=== PATIENT | female | born 1990 | race Caucasian/White ===

== ENCOUNTER 2021-08-13 13:52 | Day surgery (SDC) | payer BC ==
[2021-08-13 14:42] VITALS: BMI 38.2
[2021-08-13 15:24] LABS: #Basophils 0.1 10x3/uL (0.0-0.2); #Eosinphils 0.2 10x3/uL (0.0-0.5); #Monocytes 0.7 10x3/uL (0.0-1.1); #Neutrophils 6.5 10x3/uL (1.5-8.4); %Basophils 0.6 % (0.0-2.0); %Eosinophils 1.7 % (0.0-6.0); %Lymphocytes 15.2 % (18.0-47.0); %Monocytes 8.1 % (0.0-10.0); %Neutrophils 73.8 % (40.0-75.0); Hemoglobin 11.5 g/dL (12.0-15.5); Mean Corpuscular HGB CONC 33.8 g/dL (32.0-36.0); Mean Corpuscular Hemoglobin 29.8 pg (27.0-33.0); Mean Corpuscular Volume 88.1 fl (81.6-98.3); Mean Platelet Volume 10.5 fl (7.4-10.4); Platelet Count 227 10x3/uL (150-450); RBC Distribution Width 13.2 % (11.5-14.5); Red Blood Cell (RBC) Count 3.86 10x6/uL (3.90-5.03); White Blood Cell (WBC) Count 8.8 10x3/uL (3.5-10.5)
[2021-08-13 15:39] LABS: ALT (SGPT) 18 U/L (8-55); AST (SGOT) 17 U/L (5-34); Albumin 3.5 g/dL (3.5-5.0); Alkaline Phosphatase 107 U/L (40-110); Anion Gap 12 mmol/L (10-20); BUN (Urea Nitrogen) 12 mg/dL (7.0-18.7); Bilirubin, Total 0.2 mg/dL (0.2-1.2); Calc. Creatinine Clearance 163 mL/min (70-130); Calcium 8.9 mg/dL (7.8-10.44); Carbon Dioxide 20 mmol/L (22-29); Chloride 107 mmol/L (98-107); Globulin 3.3 g/dL (2.4-3.5); Glucose 87 mg/dL (70-105); Protein, Total 6.8 g/dL (6.0-8.3); Sodium 135 mmol/L (136-145)
[2021-08-13 16:00] LABS: Creatinine, Urine 34.18 mg/dL (47-110); Protein, Urine Random Quant Less than 10 mg/dL (1-14)
== END 2021-08-13 17:38 | disposition home or self-care (01) ==
LOC: CSHLD/OP 13:52
PROVIDERS: ATTEND Advanced Practice Midwife
DX: O99.891 Other specified diseases and conditions complicating pregnancy (principal); R03.0 Elevated blood-pressure reading, without diagnosis of hypertension; O24.419 Gestational diabetes mellitus in pregnancy, unspecified control; Z3A.36 36 weeks gestation of pregnancy; Z79.82 Long term (current) use of aspirin; Z88.0 Allergy status to penicillin; Z88.2 Allergy status to sulfonamides
CPT/HCPCS: 36415; 80053; 82570; 84156; 85025; 99283

== ENCOUNTER 2021-08-21 11:57 | Outpatient (CLI) | payer BC ==
[2021-08-21 20:38] LABS: SARS-CoV-2 PCR by NAA Not Detected (NotDetected)
== END 2021-08-21 11:58 | disposition home or self-care (01) ==
LOC: CSHLAB 11:57
PROVIDERS: ATTEND Advanced Practice Midwife
DX: Z20.822 Contact with and (suspected) exposure to COVID-19 (principal)
CPT/HCPCS: U0003; U0005

== ENCOUNTER 2021-08-23 05:30 | Inpatient (IN) | payer BC ==
[2021-08-23 07:41] VITALS: BMI 37.8
[2021-08-23] MEDS ORDERED: Bupivacaine 0.25% HCL 30 ML VIAL ONE (08:00)
[2021-08-23] MEDS ORDERED: Ondansetron PF 4 MG/2 ML Vial IVP PRN ×3 (08:24→18:51)
[2021-08-23] MEDS ORDERED: hydrALAZINE 20 MG/ML VIAL SLOW IVP PRN ×2 (08:24→18:51)
[2021-08-23] MEDS ORDERED: Butorphanol Tartrate 1 MG/ML VIAL SLOW IVP PRN (08:24)
[2021-08-23] MEDS ORDERED: Ibuprofen 800 MG TAB PO PRN (08:24)
[2021-08-23] MEDS ORDERED: Lidocaine 1% (PF) 30 ML VIAL SC PRN (08:24)
[2021-08-23] MEDS ORDERED: Promethazine HCl 25 MG/ML VIAL IM PRN ×2 (08:24→13:53)
[2021-08-23] MEDS ORDERED: HYDROcodone/Acetaminophen 5/325 mg Tablet PO PRN ×4 (08:24→18:51)
[2021-08-23] MEDS ORDERED: NS w/ Oxytocin 30 units 500 ML IV SCH ×3 (08:30→18:51)
[2021-08-23] MEDS ORDERED: NS w/ Oxytocin 30 units 500 ML ONE (08:37)
[2021-08-23] MEDS: Lactated Ringer's 1,000 ML IV SCH ×2 (08:43→13:53)
[2021-08-23 08:51] LABS: Hemoglobin 12.6 g/dL (12.0-15.5); Mean Corpuscular HGB CONC 34.3 g/dL (32.0-36.0); Mean Corpuscular Hemoglobin 29.9 pg (27.0-33.0); Mean Corpuscular Volume 87.2 fl (81.6-98.3); Mean Platelet Volume 11.4 fl (7.4-10.4); Platelet Count 229 10x3/uL (150-450); RBC Distribution Width 13.2 % (11.5-14.5); Red Blood Cell (RBC) Count 4.21 10x6/uL (3.90-5.03); White Blood Cell (WBC) Count 11.4 10x3/uL (3.5-10.5)
[2021-08-23 09:29] LABS: Hep B Surf Ag Non-Reactive S/CO (NonReactive)
[2021-08-23 09:30] LABS: Syphilis Antibody Nonreactive (Nonreactive); Syphilis Antibody Index 0.05 S/CO (<1.00 Non-Reactive)
[2021-08-23 09:37] LABS: HBSAg Index 0.19 S/CO (0-0.99)
[2021-08-23] MEDS ORDERED: Fentanyl 2 mcg/Bup 0.1% Cadd 100 ML ONE (10:49)
[2021-08-23] MEDS ORDERED: Lactated Ringer's 500 ML IV PRN (13:53)
[2021-08-23] MEDS ORDERED: Hydrocerin (Eucerin) Cream 120 gm Jar TOP PRN (13:53)
[2021-08-23] MEDS ORDERED: diphenhydrAMINE 50 MG/ML VIAL IVP PRN (13:53)
[2021-08-23] MEDS ORDERED: ePHEDrine Sulfate 50 MG/10 ML VIAL SLOW IVP PRN (13:53)
[2021-08-23] MEDS ORDERED: Naloxone HCl 0.4 mg/ml Vial IVP PRN ×2 (13:53)
[2021-08-23] MEDS ORDERED: Acetaminophen 325 MG TAB PO PRN (13:53)
[2021-08-23] MEDS ORDERED: Fentanyl 2 mcg/Bupivacaine 0.1% Cassette 100 ML EPIDURAL SCH (14:00)
[2021-08-23] MEDS ORDERED: Communication Order-Pharmacy FS SCH (14:00)
[2021-08-23] MEDS ORDERED: Boostrix 0.5 ML (Tdap) VIAL IM ONE (18:51)
[2021-08-23] MEDS ORDERED: Milk Of Magnesia 30 ML UDCUP PO PRN (18:51)
[2021-08-23] MEDS ORDERED: Misoprostol 200 MCG TAB VAG PRN (18:51)
[2021-08-23] MEDS ORDERED: Lanolin Ointment 7 GM TUBE TOP PRN (18:51)
[2021-08-23] MEDS ORDERED: Benzocaine-Menthol 82.5 ML CAN TOP PRN (18:51)
[2021-08-23] MEDS ORDERED: Bisacodyl 10 MG SUPP PR PRN (18:51)
[2021-08-23] MEDS: Docusate 100 MG CAP PO SCH (21:51)
[2021-08-23] MEDS: Ibuprofen 800 MG TAB PO SCH (21:51)
[2021-08-24] MEDS: Ibuprofen 800 MG TAB PO SCH ×2 (05:38→13:55)
[2021-08-24] MEDS: Ferrous Sulfate 325 MG TAB PO SCH ×2 (08:07→17:09)
[2021-08-24] MEDS ORDERED: Prenatal Vitamin 1 TAB PO SCH (09:00)
[2021-08-24] MEDS: Docusate 100 MG CAP PO SCH (12:22)
[2021-08-24 17:22] VITALS: BP 136/83; TEMP 97.7
== END 2021-08-24 19:15 | disposition home or self-care (01) | DRG 807 ==
LOC: CSHLD 06:39 → CSHPP 20:35 → CSHERHOLD 08-24 09:19 → CSHPP 08-24 09:26
PROVIDERS: ADMIT Obstetrics & Gynecology; ATTEND Obstetrics & Gynecology
PROC: 10E0XZZ Delivery of Products of Conception, External Approach (ICD-10-PCS; principal; 2021-08-23)
PROC: 3E033VJ Introduction of Other Hormone into Peripheral Vein, Percutaneous Approach (ICD-10-PCS; 2021-08-23)
PROC: 0HQ9XZZ Repair Perineum Skin, External Approach (ICD-10-PCS; 2021-08-23)
DX: O13.4 Gestational [pregnancy-induced] hypertension without significant proteinuria, complicating childbirth (principal); Z37.0 Single live birth; O24.429 Gestational diabetes mellitus in childbirth, unspecified control; O70.0 First degree perineal laceration during delivery; O69.81X0 Labor and delivery complicated by cord around neck, without compression, not applicable or unspecified; O14.94 Unspecified pre-eclampsia, complicating childbirth; Z3A.38 38 weeks gestation of pregnancy
CPT/HCPCS: 36416; 51702; 85027; 86780; 86850; 86900; 86901; 87340; J2590; J7120; S0020; U0003; U0005